=== PATIENT | female | born 1985 | race Caucasian/White ===

== ENCOUNTER → 2022-08-13 10:25 | Outpatient (BNVA) | payer MEDICAID, SELFPAY | PROVIDERS: PCP Nurse Practitioner Family; Visit Provider Nurse Practitioner Family | DX: R30.0 Dysuria (principal); E03.9 Hypothyroidism, unspecified; F32.4 Major depressive disorder, single episode, in partial remission; E78.5 Hyperlipidemia, unspecified; J45.909 Unspecified asthma, uncomplicated; E66.9 Obesity, unspecified; F41.9 Anxiety disorder, unspecified | CPT/HCPCS: 80053; 80061; 83036; 83525; 84443 ==

== ENCOUNTER → 2022-10-26 13:30 | Outpatient (BNVA) | payer MEDICAID, SELFPAY | PROVIDERS: PCP Nurse Practitioner Family; Visit Provider Nurse Practitioner Family | DX: L08.9 Local infection of the skin and subcutaneous tissue, unspecified (principal); B95.8 Unspecified staphylococcus as the cause of diseases classified elsewhere | CPT/HCPCS: 87081 ==

== ENCOUNTER → 2022-12-10 11:53 | Outpatient (BNVA) | payer MEDICAID, SELFPAY | PROVIDERS: PCP Nurse Practitioner Family; Visit Provider Nurse Practitioner Family | DX: Z72.51 High risk heterosexual behavior (principal); R10.2 Pelvic and perineal pain | CPT/HCPCS: 87491; 87591; 87661; 87806 ==

== ENCOUNTER → 2023-03-03 16:27 | Outpatient (BNVA) | payer MEDICAID, SELFPAY | PROVIDERS: PCP Nurse Practitioner Family; Visit Provider Nurse Practitioner Family | DX: E03.9 Hypothyroidism, unspecified (principal); E78.5 Hyperlipidemia, unspecified; R53.1 Weakness; R53.83 Other fatigue; Z86.711 Personal history of pulmonary embolism; J45.909 Unspecified asthma, uncomplicated | CPT/HCPCS: 80053; 80061; 82306; 82607; 82746; 83550; 84443 ==

== ENCOUNTER → 2023-07-08 14:05 | Outpatient (BNVA) | payer BC, MEDICAID, SELFPAY | PROVIDERS: PCP Nurse Practitioner Family; Visit Provider Nurse Practitioner Family | DX: F32.4 Major depressive disorder, single episode, in partial remission (principal); F41.9 Anxiety disorder, unspecified; E78.5 Hyperlipidemia, unspecified; Z86.711 Personal history of pulmonary embolism; E03.9 Hypothyroidism, unspecified; Z72.51 High risk heterosexual behavior; R53.83 Other fatigue; R53.1 Weakness; J45.909 Unspecified asthma, uncomplicated; E78.2 Mixed hyperlipidemia; J45.20 Mild intermittent asthma, uncomplicated; Z72.89 Other problems related to lifestyle | CPT/HCPCS: 80053; 80061; 82607; 82746; 83550; 84443; 85025; 87491; 87591; 87806 ==

== ENCOUNTER → 2023-10-26 16:52 | Outpatient (BNVA) | payer BC, MEDICAID, SELFPAY | PROVIDERS: PCP Nurse Practitioner Family; Visit Provider Nurse Practitioner Family | DX: Z86.711 Personal history of pulmonary embolism (principal); Z91.148 Patient's other noncompliance with medication regimen for other reason | CPT/HCPCS: 80053; 85025 ==

== ENCOUNTER 2023-10-31 17:03 | Outpatient (CLI) | payer BC, MEDICAID, SELFPAY ==
--- NOTE | 2023-10-31 17:00 | CTR_ITS ---
PROCEDURE INFORMATION: Exam: CTA Chest With Contrast Exam date and time: 10/31/2023 5:14 PM Age: 38 years old Clinical indication: Chest wall pain and right-sided; Patient HX: Pain on right side lower chest x 2 weeks, stopped taking her blood thinnners, HX of pulmonary embolism; Additional info: Right-sided lung pain history of pulmonary embolism noncomp TECHNIQUE: Imaging protocol: Computed tomographic angiography of the chest with contrast. Exam focused on the arteries. 3D rendering (Not supervised by radiologist): MIP and/or 3D reconstructed images were created by the technologist. Radiation optimization: All CT scans at this facility use at least one of these dose optimization techniques: automated exposure control; mA and/or kV adjustment per patient size (includes targeted exams where dose is matched to clinical indication); or iterative reconstruction. Contrast material: OMNIPAQUE 350; Contrast volume: 100 ml; Contrast route: INTRAVENOUS (IV); COMPARISON: No relevant prior studies available. RADIATION DOSE METRICS: Total DLP (mGy-cm): 272.98 FINDINGS: Pulmonary arteries: There is hypoattenuation within a lingular subsegmental branch with relative narrowing of the vessel suspicious for chronic PE (for example, images 19-21 of series 9). Faint hypoattenuation in the right lower lobe segmental pulmonary arterial branch, favored to represent turbulent flow (image 123 of series 8). No convincing evidence of acute PE. Aorta: No evidence of aneurysmal dilatation the thoracic aorta. Evaluation for acute aortic abnormality is limited by the paucity of intraluminal contrast related to tailoring of the exam for evaluation of the pulmonary arteries. Thyroid: Grossly unremarkable. Lungs: No focal consolidation. No evidence of pneumonia. Pleural spaces: No evidence of pleural effusion. No pneumothorax. Heart: No cardiomegaly. No pericardial effusion. Cardiac RV:LV ratio measures approximately 0.6. Mediastinal space: No evidence of mediastinal mass, fluid collection or hematoma. Lymph nodes: No mediastinal or hilar adenopathy. Bones/joints: No evidence of acute fracture or aggressive osseous lesion. Soft tissues: No evidence of fluid collection or hematoma in the superficial soft tissues. Other findings: No evidence of acute abnormality in the upper abdomen. CT/CT angio chest PE protcl [id number] IMPRESSION: 1. Suspected chronic lingular subsegmental PE. No evidence of acute PE.
[2023-10-31] MEDS: iohexol 300 mg/mL 100 mL Btl IV (17:27)
== END 2023-10-31 17:04 | disposition home or self-care (01) ==
LOC: RAD 17:03
PROVIDERS: PCP Nurse Practitioner Family; Visit Provider Nurse Practitioner Family
DX: Z91.148 Patient's other noncompliance with medication regimen for other reason (principal); Z86.711 Personal history of pulmonary embolism; I28.8 Other diseases of pulmonary vessels
CPT/HCPCS: 71275; Q9967

== ENCOUNTER → 2023-12-07 09:21 | Outpatient (BNVA) | payer BC, MEDICAID, SELFPAY | PROVIDERS: PCP Nurse Practitioner Family; Visit Provider Nurse Practitioner Family | DX: R30.0 Dysuria (principal); Z72.51 High risk heterosexual behavior; A60.00 Herpesviral infection of urogenital system, unspecified; M21.612 Bunion of left foot; I26.99 Other pulmonary embolism without acute cor pulmonale; Z86.711 Personal history of pulmonary embolism | CPT/HCPCS: 86695; 86696; 87389; 87491; 87591 ==

== ENCOUNTER → 2024-02-16 08:53 | Outpatient (BNVA) | payer BC, MEDICAID, SELFPAY | PROVIDERS: PCP Nurse Practitioner Family; Visit Provider Nurse Practitioner Family | DX: R30.0 Dysuria (principal) | CPT/HCPCS: 81000 ==

== ENCOUNTER 2024-12-30 14:40 | Emergency (ER) | payer BC, MEDICAID, SELFPAY ==
[2024-12-30 14:41] VITALS: BP 114/78; PULSE 78; RESP 16; TEMP 36.7; O2SAT 97; BMI 27.2
--- NOTE | 2024-12-30 15:34 | USR_ITS ---
PROCEDURE INFORMATION: Exam: US Duplex Right Lower Extremity Veins, Limited Exam date and time: 12/30/2024 4:25 PM Age: 39 years old Clinical indication: Other: History of dvts, off meds, leg feels weird TECHNIQUE: Imaging protocol: Real-time duplex ultrasound of the right extremity with 2-D cantor scale, color Doppler flow and spectral waveform analysis including responses to compression and other maneuvers (when performed) with image documentation. Limited exam was focused on the right lower extremity veins. COMPARISON: No relevant prior studies available. FINDINGS: Right deep veins: Unremarkable. The common femoral, femoral, proximal profunda femoral, popliteal, posterior tibial and peroneal veins are patent without thrombus. Normal Doppler waveforms. Normal compressibility and/or augmentation response. Superficial veins: Greater saphenous vein at the saphenofemoral junction is patent without thrombus. Soft tissues: Unremarkable. US/[place] [id number] IMPRESSION: No sonographic evidence of deep vein thrombosis.
[2024-12-30 15:41] LABS: Hematocrit 43.3 % (36-47); Hemoglobin 13.90 g/dL (11.27-16.99); Mean Corpuscular HGB Conc 32.1 g/dL (30-55); Mean Corpuscular Hemoglobin 30.3 pg (27-33); Mean Corpuscular Volume 94.3 fl (85-98); Nucleated Red Blood Cells % 0 %; Platelet Count 254 10^3/cmm (157-399); Red Blood Count 4.59 10^6/uL (3.85-5.65); White Blood Count 6.08 10^3/uL (3.29-11.43)
[2024-12-30 15:57] VITALS: BP 124/81; BP 127/57; BP 128/66; PULSE 125; PULSE 61; PULSE 71
--- NOTE | 2024-12-30 15:59 | ECG_ITS ---
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 Measurements Intervals Purdys Rate: 62 P: 70 ID: [id number] QRS: 90 QRSD: 78 T: 56 QT: 378 QTc: 387 Interpretive Statements SINUS RHYTHM WITH blocked PACs MINIMAL ST DEPRESSION [0.025+ mV ST DEPRESSION] No previous ECG available for comparison Electronically Signed On 12-30-2024 18:32:40 CDT by Serena Clements M.D. [email or web address]
[2024-12-30 16:20] LABS: Glucose Urine UA Negative (Normal); Nitrate Urine Positive (Negative); Specific Gravity, Urine 1.023 (1.005-1.030)
[2024-12-30 16:25] LABS: Alanine Aminotransferase 9 U/L (0-33); Albumin Level 4.4 g/dL (3.5-5.2); Alkaline Phosphatase 65 U/L (35-105); Anion Gap 16.1 (5-19); Aspartate Amino Transferase 10 U/L (0-32); Blood Urea Nitrogen 15 mg/dL (6-20); Calcium 9.5 mg/dL (8.5-10.5); Carbon Dioxide 26 mmol/L (22-29); Chloride 101 mmol/L (98-107); Creatinine Clr Calc Pharmacy 113.7534; Globulin 3.6 g/dL (1.3-4.6); Glucose 94 mg/dL (65-115); Osmolality Calculated 289 mOsm/kg (285-295); Potassium 4.1 mmol/L (3.5-5.1); Sodium 139 mmol/L (136-145); Total Protein 8.0 g/dL (6.6-8.7)
[2024-12-30 16:25] LABS: Add Urine Microscopic? YES
[2024-12-30] MEDS: cefTRIAXone 1,000 mg SDV 1000 MG IVP (16:59)
--- NOTE | 2024-12-30 17:44 | W.ED.WEAKNES ---
HPI - Weakness General: Chief complaint: Weakness Stated complaint: weak, dizzy, abdominal pain Time Seen by Provider: 12/30/24 14:58 History of Present Illness: This patient is a 39-year-old female presenting today with abdominal discomfort, lightheadednes for the past several days. She has had some constipation which she thinks is causing her abdominal discomfort. She denies vomiting but also has not had much appetite. She said she got up to make her son some food this afternoon and felt like she was going to pass out. She think she might of had a fever as well. She reports a history of blood clots in her lungs. She says this has happened multiple times and she was on Eliquis. She stopped it about a year ago and has been using natural methods since. She apparently takes cayenne powder, drinks grape juice and spends time in the sun to prevent blood clots. She has been doing this for about a year and has not had a recurrence. She denies cough or shortness of breath. She does note that she feels like she has to take deep breaths to get enough air. She denies chest pain. She denies leg pain or swelling. On my exam however she did complain of tenderness along the inner lower and upper leg following the course of the saphenous vein. She has had a hysterectomy for adenomyosis. She has had some urinary symptoms. Related Data Home Medications ?Medication ?Instructions ?Recorded ?Confirmed multivitamin with minerals 1 tab PO DAILY 12/30/24 12/30/24 (Multiple Vitamin-Minerals tablet) multivitamin-ferrous 1 tab PO DAILY 12/30/24 12/30/24 fumarate-folic acid 18 mg-400 mcg tablet (Women's Daily Multivitamin) Previous Rx's ?Medication ?Instructions ?Recorded NEBULIZER MACHINE AND TUBING #1 ea 07/18/23 sulfamethoxazole 800 1 tab PO BID 3 days #6 tabs 12/30/24 mg-trimethoprim 160 mg tablet (Bactrim DS) Allergies Allergy/AdvReac Type Severity Reaction Status Date / Time butorphanol (From Stadol) Allergy Unknown Verified 12/10/22 10:30 morphine Allergy Unknown Verified 12/10/22 10:30 PFS ED PFSH: Family History Other Cancer Diabetes Hyperlipidemia Hypertension Multiple sclerosis Thyroid disease Social History Smoking and tobacco/nicotine status: former use of tobacco/nicotine Quit status (tobacco/nicotine): has tried quititng Physical Exam Const: COMMON NORMALS: no acute distress, patient oriented x3, no limitations and alert GENERAL APPEARANCE: cooperative and comfortable HENMT: HEAD & SCALP: normal to inspection FACE & SINUS: normal facial exam Eye: GENERAL EYE: appearance normal, both eyes and all related structures Neck/C-Spine: COMMON NORMALS: supple, no meningeal signs and no JVD Chest: COMMONS NORMALS: normal inspection of the chest Resp: COMMON NORMALS: normal respiratory effort, No use of accessory muscles and clear to auscultation bilaterally AUSCULTATION: clear to auscultation bilaterally Cardio: COMMON NORMALS: no JVD, regular rate, regular rhythm and No murmurs present (Cardio) RATE: regular rate RHYTHM: regular rhythm GI: COMMON NORMALS: Normal to inspection, nondistended, normoactive bowel sounds present, Soft to palpation and non-tender INSPECTION: Yes normal to inspection AUSCULTATION: Yes normoactive bowel sounds PALPATION: Yes Soft to palpation Back/Pelvis: COMMON NORMALS: thoracic and lumbar spine normal to inspection Extremity: COMMON NORMALS: normal to inspection Neuro: COMMON NORMALS: patient oriented x3, moves all extremities, no focal motor deficits and no sensory deficits noted SENSORIUM/ORIENTATION: Yes alert MENINGEAL SIGNS: Yes no meningeal signs Psych: COMMON NORMALS: mental status grossly normal, cooperative and normal affect Skin: COMMON NORMALS: no rashes or lesions noted and turgor normal GENERAL SKIN EXAM: no rashes or lesions noted and turgor normal Course Vital Signs: Vital signs: Vital Signs Temperature 98.0 F 12/30/24 14:41 Pulse Rate 61 12/30/24 15:57 Respiratory Rate 16 12/30/24 14:41 Blood Pressure 127/57 12/30/24 15:57 Pulse Oximetry 97 12/30/24 14:41 Oxygen Delivery Me thod Room Air 12/30/24 14:41 MDM - Weakness Medical Decision Making Patient complains of abdominal pain but her exam was really fairly benign. She was noted to have significantly positive orthostatic vital signs. She became symptomatic with standing. She was given 2 L of IV fluid. Labs were done and revealed a significant UTI although her white blood cell count was normal. D-dimer was done as was a ultrasound of her right lower extremity due to her history of blood clots, noncompliance with medications, tenderness along the veins of the right leg. These were both negative. She was given a gram of IV Rocephin for her UTI. She will be discharged home once she is feeling better and no longer orthostatic. Lab Data 12/30/24 15:34 12/30/24 15:34 Radiology Impressions Venous Duplex 12/30/24 15:34 IMPRESSION: No sonographic evidence of deep vein thrombosis. Laboratory Results WBC 6.08 10^3/uL (3.29-11.43) 12/30/24 15:34 RBC 4.59 10^6/uL (3.85-5.65) 12/30/24 15:34 Hgb 13.90 g/dL (11.27-16.99) 12/30/24 15:34 Hct 43.3 % (36-47) 12/30/24 15:34 MCV 94.3 fl (85-98) 12/30/24 15:34 MCH 30.3 pg (27-33) 12/30/24 15:34 MCHC 32.1 g/dL (30-55) 12/30/24 15:34 RDW 12.2 % (12.1-15.1) 12/30/24 15:34 Plt Count 254 10^3/cmm (157-399) 12/30/24 15:34 MPV 10.0 fL (7.4-10.4) 12/30/24 15:34 Neut % (Auto) 54.3 % 12/30/24 15:34 Lymph % (Auto) 34.2 % 12/30/24 15:34 Coffee % (Auto) 6.4 % 12/30/24 15:34 Eos % (Auto) 3.6 % 12/30/24 15:34 Baso % (Auto) 1.2 % 12/30/24 15:34 Neut # (Auto) 3.30 10^3/uL (1.8-7.7) 12/30/24 15:34 Lymph # (Auto) 2.1 10^3/uL (0.8-4.8) 12/30/24 15:34 Coffee # (Auto) 0.4 10^3/uL (0.2-0.9) 12/30/24 15:34 Eos # (Auto) 0.2 10^3/uL (0.0-0.8) 12/30/24 15:34 Baso # (Auto) 0.1 10^3/uL (0.0-0.1) 12/30/24 15:34 Nucleated RBC % (auto) 0 % 12/30/24 15:34 Nucleated RBCs # 0.0 /100WBC 12/30/24 15:34 D-Dimer 0.47 ug/mLFEU (0-0.59) 12/30/24 15:34 Sodium 139 mmol/L (136-145) 12/30/24 15:34 Potassium 4.1 mmol/L (3.5-5.1) 12/30/24 15:34 Chloride 101 mmol/L (98-107) 12/30/24 15:34 Carbon Dioxide 26 mmol/L (22-29) 12/30/24 15:34 Anion Gap 16.1 (5-19) 12/30/24 15:34 BUN 15 mg/dL (6-20) 12/30/24 15:34 Creatinine 0.8 mg/dL (0.5-0.9) 12/30/24 15:34 GFR Calculation 80.3 mL/min (90-130) L 12/30/24 15:34 Glucose 94 mg/dL (65-115) 12/30/24 15:34 Calculated Osmolality 289 mOsm/kg (285-295) 12/30/24 15:34 Calcium 9.5 mg/dL (8.5-10.5) 12/30/24 15:34 Total Bilirubin 0.6 mg/dL (0.15-1.2) 12/30/24 15:34 AST 10 U/L (0-32) 12/30/24 15:34 ALT 9 U/L (0-33) 12/30/24 15:34 Alkaline Phosphatase 65 U/L (35-105) 12/30/24 15:34 Total Protein 8.0 g/dL (6.6-8.7) 12/30/24 15:34 Albumin 4.4 g/dL (3.5-5.2) 12/30/24 15:34 Globulin 3.6 g/dL (1.3-4.6) 12/30/24 15:34 Urine Color Yellow (Yellow) 12/30/24 15: Urine Appearance Cloudy (CLEAR) A 12/30/24 15: Urine pH 7.0 (5-7) 12/30/24 15:29 Ur Specific [place] 1.023 (1.005-1.030) 12/30/24 15: Urine Protein Negative (Negative) 12/30/24 15: Urine Glucose (UA) Negative (Normal) 12/30/24 15: Urine Ketones Trace (Negative) 12/30/24 15: Urine Blood Negative (Negative) 12/30/24 15: Urine Nitrate Positive (Negative) A 12/30/24 15: Urine Bilirubin Negative (Negative) 12/30/24 15: Urine Urobilinogen 1.0 mg/dL (Negative) 12/30/24 15:29 Ur Leukocyte Esterase 1+ (Negative) A 12/30/24 15: Urine RBC 6-10 /hpf (0-2) 12/30/24 15:29 Urine WBC 21-50 /hpf (0-5) H 12/30/24 15:29 Ur Squamous Epith Cells 0-5 /hpf (0-5) 12/30/24 15: Amorphous Sediment Not Reportable 12/30/24 15: Urine Bacteria 4+ /hpf (NONE) H 12/30/24 15:29 Hyaline Casts 2.46 /lpf 12/30/24 15:29 All radiology interpretation(s) finalized by discharge Discharge Plan Discharge Patient Disposition: Home Clinical Impression: Postural dizziness with near syncope UTI (urinary tract infection) Qualifiers: Urinary tract infection type: site unspecified Hematuria presence: with hematuria Qualified Code(s): N39.0 - Urinary tract infection, site not specified Condition: Stable Prescriptions: New sulfamethoxazole-trimethoprim [Bactrim DS] 800-160 mg tablet 1 tab PO BID 3 Days Qty: 6 0RF No Action (DME) NEBULIZER MACHINE AND TUBING See Rx Instructions .Route .MEDSUPPLY Qty: 1 0RF Rx Instructions: As directed Multiple Vitamin-Minerals Tablet 1 tab PO DAILY Women's Daily Multivitamin 18-400 mg-mcg Tablet 1 tab PO DAILY Discharge Orders: Discharge ED (Routine); Ordered 12/30/24 Ordered By: Kallie Proctor Referrals: Samantha Jean NP [Primary Care Provider, [facility]] Patient Instructions: Opioid Safety, Pain Management, Patient Portal & [employer] Instructions Print Language: Persian Coding Level of Care Code ED Child Protective Services Social Worker for Mirela Justice
== END 2024-12-30 18:50 | disposition home or self-care (01) ==
PROVIDERS: Emergency Provider Emergency Medicine; PCP Nurse Practitioner Family
DX: N39.0 Urinary tract infection, site not specified (principal); R42 Dizziness and giddiness; R55 Syncope and collapse
CPT/HCPCS: 36415; 80053; 81001; 85025; 85378; 87077; 87086; 87186; 93005; 93971; 96361; 96374; 96375; 99285; J0696; J1885; J7030

== ENCOUNTER 2025-04-25 10:49 | Emergency (ER) | payer BC, MEDICAID, SELFPAY ==
--- NOTE | 2025-04-25 10:56 | XR_ITS ---
WS: [id number] Exam: XR lumbar spine 2-3V* [id number] Date/Time of Exam: 04/25/2025 10:56 AM Reason For Exam: traumatic low back pain [id number] DLP: No fracture or malalignment. Disc spaces are preserved. There is mild levoscoliosis. Posterior elements are intact as visualized. Mild DJD of the SI joints. XR/XR lumbar spine 2-3V* [id number] IMPRESSION: 1. No fracture or malalignment. Mild levoscoliosis.
--- NOTE | 2025-04-25 10:56 | ED_ITS ---
HPI - Back Pain/Injury General: Chief Complaint: Back Pain/Injury Stated Complaint: pain in lower back Time Seen by Provider: 04/25/25 10:53 History of Present Illness: 40-year-old female with a history of pul monary embolism not currently on any anticoagulation hyperlipidemia, hypothyroidism and depression who dents emergency room with low back pain. She is requesting an x-ray. She says 1 month ago she tripped while walking backwards and hit her back on a metal pole. She has been having pain since. No saddle numbness, no fecal or urinary retention or incontinence, no focal motor deficit, no sensory deficit. Related Data Home Medications ?Medication ?Instructions ?Recorded ?Confirmed multivitamin with minerals 1 tab PO DAILY 12/30/24 (Multiple Vitamin-Minerals tablet) multivitamin-ferrous 1 tab PO DAILY 12/30/2412/12 fumarate-folic acid 18 mg-400 mcg tablet (Women's Daily Multivitamin) Previous Rx's ?Medication ?Instructions ?Recorded NEBULIZER MACHINE AND TUBING #1 ea 07/18/23 Allergies Allergy/AdvReac Type Severity Reaction Status Date / Time butorphanol (From Stadol) Allergy Unknown Verified 12/10/22 10:30 morphine Allergy Unknown Verified 12/10/22 10:30 Review of Systems Narrative: Constitutional symptoms: Negative except as documented in HPI. Skin symptoms: Negative except as documented in HPI. Eye symptoms: Negative except as documented in HPI. ENMT symptoms: Negative except as documented in HPI. Respiratory symptoms: Negative except as documented in HPI. Cardiovascular symptoms: Negative except as documented in HPI. Gastrointestinal symptoms: Negative except as documented in HPI. Genitourinary symptoms: Negative except as documented in HPI. Musculoskeletal symptoms: Negative except as documented in HPI. Neurologic symptoms: Negative except as documented in HPI. Psychiatric symptoms: Negative except as documented in HPI. Endocrine symptoms: Negative except as documented in HPI. PFSH ED PFSH: Family History Other Cancer Diabetes Hyperlipidemia Hypertension Multiple sclerosis Thyroid disease Social History Smoking and tobacco/nicotine status: former use of tobacco/nicotine Quit status (tobacco/nicotine): has tried quititng Physical Exam Narrative: EXAM NARRATIVE: General: Alert, no acute distress. Head: Normocephalic Neck: Trachea midline Eye: Extraocular movements are intact. Ears, nose, mouth and throat: Oral mucosa moist Respiratory: Respirations are non-labored Musculoskeletal: Normal ROM Back: no step off, no focal tenderness, some paraspinal muscle tenderness Neurological: Alert and oriented, No focal neurological deficit observed. Psychiatric: Cooperative, appropriate mood & affect. Course Vital Signs: Vital signs: Vital Signs Temperature 98.5 F 04/25/25 10:57 Pulse Rate 68 04/25/25 10:57 Respiratory Rate 16 04/25/25 10:57 Blood Pressure 137/77 04/25/25 11:12 Pulse Oximetry 98 04/25/25 11:12 Oxygen Delivery Me thod Room Air 04/25/25 11:12 MDM - Back Pain/Injury Medical Decision Making Medical decision making Patient's reason for coming to the emergency room: Low back pain Social determinants: Patient is unemployed. I reviewed the patient's medical record. Patient was last seen in the emergency room and diagnosed with UTI back in December. I reviewed the patient's current home meds Patient not taking any chronic medications currently. Alternate historians: None Differential diagnosis: including but not limited to and based on the above HPI, review of systems and physical exam: This patient with low back pain for 1 month is likely musculoskeletal in nature but we will do an x-ray to rule out any fractures or other bony abnormalities. Orders placed to evaluate differential diagnosis based on the above differential, HPI and physical exam X-ray of lumbar spine: No fractures or dislocations. This was reviewed and interpreted by myself the emergency room physician. I also reviewed the radiology report. Lab Review: Laboratory results were reviewed and interpreted by myself the emergency room physician. No lab work indicated today. Assessment of risk: Level of risk: Low risk patient Hospitalization considerations: No consideration of hospitalization Reexamination: Patient remained stable. No increased work of breathing. No altered mental status. No focal motor deficits. Assessment and plan: Low back pain ?Patient declines any steroids or muscle relaxers - Discharged home - Discussed plan with patient. Answered any questions. - Evaluation and treatment of this problem were appropriate in the emergency setting. Labs Radiology Impressions Lumbar Spine X-Ray 04/25/25 10:56 IMPRESSION: 1. No fracture or malalignment. Mild levoscoliosis. All radiology interpretation(s) finalized by discharge Discharge Plan Discharge Patient Disposition: Home Clinical Impression: Strain of lumbar region Condition: Stable Prescriptions: No Action (DME) NEBULIZER MACHINE AND TUBING See Rx Instructions .Route .MEDSUPPLY Qty: 1 0RF Rx Instructions: As directed Multiple Vitamin-Minerals Tablet 1 tab PO DAILY Women's Daily Multivitamin 18-400 mg-mcg Tablet 1 tab PO DAILY Discharge Orders: Discharge ED (Routine); Ordered 04/25/25 Ordered By: Ariela Vieira Referrals: Samantha Jean NP [Primary Care Provider, Family Practice] Discharge Diet: Usual diet Discharge Activity: Increase activity as tolerated Patient Instructions: Back Pain (ED), Opioid Safety, Pain Management, Patient Portal & Karel Instructions Activity Restrictions/Additional Instructions: Thank you for choosing [facility] for your healthcare needs today. You have been screened and evaluated and felt safe for discharge. Health conditions do change or evolve sometimes and as such it is important that you follow up with your Primary Doctor to be re checked, 3-5 days is a general good time frame for follow up. You are always welcome to return to the ED for re assessment if your symptoms are worsening or you have new concerns Print Language: Citizen Of [place] Coding Level of Care Code ED Cigar Tobacco Rehandler for Mirela Justice
[2025-04-25 10:57] VITALS: BP 137/77; PULSE 68; RESP 16; TEMP 36.9; O2SAT 98
[2025-04-25 11:12] VITALS: BP 137/77; O2SAT 98
[2025-04-25 11:44] VITALS: BP 138/99; PULSE 67; RESP 17; O2SAT 99
== END 2025-04-25 11:45 | disposition home or self-care (01) ==
PROVIDERS: Emergency Provider Emergency Medicine; PCP Nurse Practitioner Family
DX: S39.012A Strain of muscle, fascia and tendon of lower back, initial encounter (principal); Z87.891 Personal history of nicotine dependence; W01.198A Fall on same level from slipping, tripping and stumbling with subsequent striking against other object, initial encounter
CPT/HCPCS: 72100; 99283